=== PATIENT | female | born 1965 | race African-American/Black ===

== ENCOUNTER 2018-08-07 08:51 | Emergency (ER) | payer BC, SELFPAY ==
[2018-08-07 10:16] LABS: #Basophils 0.1 thou/uL (0.0-0.2); #Eosinphils 0.2 thou/uL (0.0-0.7); #Lymphocytes 0.6 thou/uL (1.20-3.40); #Monocytes 0.6 thou/uL (0.11-0.59); #Neutrophils 3.7 thou/uL (1.40-6.50); %Basophils 1.1 % (0.0-1.0); %Lymphocytes 12.4 % (21.0-51.0); %Monocytes 11.1 % (0.0-10.0); %Neutrophils 72.3 % (42.0-75.0); Hemoglobin 13.6 g/dL (12.0-16.0); Mean Corpuscular HGB CONC 31.4 g/dL (32.0-36.0); Mean Corpuscular Hemoglobin 26.4 pg (27.0-31.0); Mean Corpuscular Volume 84.1 fL (78.0-98.0); Mean Platelet Volume 7.8 fL (7.4-10.4); Platelet Count 289 thou/uL (130-400); RBC Distribution Width 13.3 % (11.5-14.5); Red Blood Cell (RBC) Count 5.15 mill/uL (4.20-5.40); White Blood Cell (WBC) Count 5.2 thou/uL (4.8-10.8)
[2018-08-07 10:38] LABS: ALT (SGPT) 16 U/L (8-55); AST (SGOT) 27 U/L (5-34); Albumin 4.3 g/dL (3.5-5.0); Alkaline Phosphatase 84 U/L (40-150); Anion Gap 11 mmol/L (10-20); BUN (Urea Nitrogen) 9 mg/dL (9.8-20.1); Bilirubin, Total 0.5 mg/dL (0.2-1.2); Calc. Creatinine Clearance 0 mL/min (70-130); Calcium 9.7 mg/dL (7.8-10.44); Carbon Dioxide 24 mmol/L (22-29); Chloride 110 mmol/L (98-107); Estimated GFR-MDRD Greater than 90; Globulin 3.6 g/dL (2.4-3.5); Glucose 106 mg/dL (70-105); Potassium 3.8 mmol/L (3.5-5.1); Protein, Total 7.9 g/dL (6.0-8.3); Sodium 141 mmol/L (136-145)
[2018-08-07 10:41] LABS: CKMB 0.8 ng/mL (0-6.6); Troponin I Less than 0.010 ng/mL (< 0.028)
== END 2018-08-07 12:34 | disposition home or self-care (01) ==
LOC: ERS 08:51
DX: R00.2 Palpitations (principal); E03.9 Hypothyroidism, unspecified; I10 Essential (primary) hypertension; F32.9 Major depressive disorder, single episode, unspecified; Z79.899 Other long term (current) drug therapy
CPT/HCPCS: 36415; 80053; 82553; 84443; 84484; 85025; 93005

== ENCOUNTER 2019-01-01 17:02 | Emergency (ER) | payer SELFPAY ==
[2019-01-01] MEDS ORDERED: Ketorolac Tromethamine 30 MG/ML VIAL ONE (19:36)
[2019-01-01] MEDS ORDERED: cloNIDine 0.1 MG TAB ONE (20:20)
== END 2019-01-01 21:42 | disposition home or self-care (01) ==
LOC: ERS 17:02
DX: J30.9 Allergic rhinitis, unspecified (principal); J06.9 Acute upper respiratory infection, unspecified; I10 Essential (primary) hypertension; E03.9 Hypothyroidism, unspecified; F32.9 Major depressive disorder, single episode, unspecified; Z79.899 Other long term (current) drug therapy
CPT/HCPCS: 96372; J1885

== ENCOUNTER 2019-11-04 07:43 | Emergency (ER) | payer SELFPAY | END 2019-11-04 08:07 | disposition home or self-care (01) | LOC: ERS 07:43 | DX: F41.9 Anxiety disorder, unspecified (principal); I10 Essential (primary) hypertension; E03.9 Hypothyroidism, unspecified; F32.9 Major depressive disorder, single episode, unspecified; Z79.899 Other long term (current) drug therapy | CPT/HCPCS: 99284 ==

== ENCOUNTER 2020-06-30 11:37 | Outpatient (CLI) | payer OTHER ==
--- NOTE | 2020-06-30 12:24 | RAD ---
EXAM: Single view of the chest HISTORY: Fall and hypertension COMPARISON: None FINDINGS: Single view of the chest shows a normal sized cardiomediastinal silhouette. There is no addison dence of consolidation, mass, or pleural effusion. Degenerative changes are seen in the spine. IMPRESSION: No evidence of acute cardiopulmonary disease
--- NOTE | 2020-06-30 13:57 | RAD ---
LUMBAR SPINE TWO VIEWS: 06/30/20 INDICATION: Fall with back pain. COMPARISON: None. FINDINGS: There is dextroscoliosis of the lumbar spine. No acute fracture or subluxation is evident. Spinal ali gnment is within normal limits. Cholecystectomy clips are seen within the right upper quadrant. IMPRESSION: No acute osseous abnormality. POS: [facility]
--- NOTE | 2020-06-30 13:58 | RAD ---
AP VIEW OF THE PELVIS: INDICATION: Fall with pelvic pain. COMPARISON: None. FINDINGS: There is moderate to severe osteoarthrosis of the right hip. There is mild degenerative change of th e left hip. No displaced fracture is evident. A small phlebolith is seen within the lower pelvis. IMPRESSION: 1. Moderate to severe right and mild left hip osteoarthrosis. 2. No acute osseous abnormality. POS: [facility]
--- NOTE | 2020-06-30 14:00 | RAD ---
TWO VIEWS SACRUM AND COCCYX: 06/30/20 INDICATION: History of fall with sacrococcygeal pain. FINDINGS: No definite displaced sacrococcygeal fracture is evident. There is moderate to severe right and mild left hip osteoarthrosis. IMPRESSION: No definite displaced sacrococcygeal fracture demonstrated. POS: [facility]
== END 2020-06-30 11:38 | disposition home or self-care (01) ==
LOC: BICRAD 11:37
PROVIDERS: ATTEND Family Medicine
DX: I10 Essential (primary) hypertension (principal); M79.7 Fibromyalgia; E06.3 Autoimmune thyroiditis; M16.0 Bilateral primary osteoarthritis of hip; W19.XXXA Unspecified fall, initial encounter
CPT/HCPCS: 71045; 72100; 72170; 72220

== ENCOUNTER 2020-07-02 13:13 | Outpatient (CLI) | payer OTHER ==
--- NOTE | 2020-07-02 14:49 | BD ---
EXAM: DEXA bone density examination HISTORY: 54-year-old postmenopausal female for screening COMPARISON: None FINDINGS: L1--bone mineral density 0.810 g/sq cm; T score -1.6 L2--bone mineral density 0.754 g/sq cm; T score -2.5 L3--bone mineral density 0.703 g/sq cm; T score -3.5 L4--bone mineral density 0.754 g/sq cm; T score -2.8 Total L1-L4--bone mineral density 0.753 g/sq cm; T score -2.7 Left femoral neck--bone mineral density0.539; T score -2.8 Total proximal left femur--bone mineral density 0.737; T score -1.7 IMPRESSION: Osteopenia.
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
== END 2020-07-02 13:14 | disposition home or self-care (01) ==
LOC: BICMAMMO 13:13
PROVIDERS: ATTEND Family Medicine
DX: Z12.31 Encounter for screening mammogram for malignant neoplasm of breast (principal); M81.0 Age-related osteoporosis without current pathological fracture; Z85.89 Personal history of malignant neoplasm of other organs and systems; Z80.3 Family history of malignant neoplasm of breast
CPT/HCPCS: 77063; 77067; 77080

== ENCOUNTER 2021-03-06 21:43 | Emergency (ER) | payer OTHER ==
[2021-03-06] MEDS ORDERED: Acetaminophen 500 MG TAB ONE (22:35)
[2021-03-06 23:55] LABS: Bilirubin Negative (Negative); Blood, Urine Negative (Negative); Clarity Turbid (Clear); Glucose, Urine (Dipstick) Normal (Negative); Ketone, Urine Negative (Negative); Leukocyte Negative Leu/uL (Negative); Nitrite Negative (Negative); Protein, Urine (Dipstick) Negative (Neg-Trace); Specific Gravity, Urine 1.017 (1.002-1.036); Urobilinogen Normal mg/dL (Less than 2)
[2021-03-07 01:23] LABS: SARS-CoV-2 NAA Rapid Test Not Detected (NotDetected)
== END 2021-03-07 01:00 | disposition home or self-care (01) ==
LOC: ERS 21:43
DX: J06.9 Acute upper respiratory infection, unspecified (principal); E03.9 Hypothyroidism, unspecified; I10 Essential (primary) hypertension; Z79.899 Other long term (current) drug therapy; Z20.822 Contact with and (suspected) exposure to COVID-19
CPT/HCPCS: 0240U; 71045; 81003; 87077; 87086; 87186

== ENCOUNTER 2022-05-08 00:31 | Emergency (ER) | payer OTHER, SELFPAY ==
[2022-05-08] MEDS ORDERED: methylPREDNISolone Sod Succ/PF 125 MG/2 ML VIAL ONE (02:17)
[2022-05-08 02:25] LABS: #Basophils 0.1 thou/uL (0.0-0.2); #Eosinphils 0.5 thou/uL (0.0-0.7); #Lymphocytes 0.9 thou/uL (1.20-3.40); #Monocytes 0.5 thou/uL (0.11-0.59); #Neutrophils 3.6 thou/uL (1.40-6.50); %Basophils 0.9 % (0.0-1.0); %Eosinophils 9.7 % (0.0-10.0); %Lymphocytes 16.6 % (21.0-51.0); %Monocytes 8.1 % (0.0-10.0); %Neutrophils 64.7 % (42.0-75.0); Hemoglobin 13.7 g/dL (12.0-16.0); Mean Corpuscular HGB CONC 31.6 g/dL (32.0-36.0); Mean Corpuscular Hemoglobin 27.7 pg (27.0-31.0); Mean Corpuscular Volume 87.5 fL (78.0-98.0); Mean Platelet Volume 8.1 fL (7.4-10.4); Platelet Count 189 thou/uL (130-400); RBC Distribution Width 12.9 % (11.5-14.5); Red Blood Cell (RBC) Count 4.95 mill/uL (4.20-5.40); White Blood Cell (WBC) Count 5.5 thou/uL (4.8-10.8)
[2022-05-08 02:43] LABS: ALT (SGPT) 18 U/L (8-55); AST (SGOT) 27 U/L (5-34); Alkaline Phosphatase 91 U/L (40-110); Anion Gap 12 mmol/L (10-20); BUN (Urea Nitrogen) 14 mg/dL (9.8-20.1); Bilirubin, Total Less than 0.2 mg/dL (0.2-1.2); Calc. Creatinine Clearance 0 mL/min (70-130); Calcium 8.9 mg/dL (7.8-10.44); Carbon Dioxide 28 mmol/L (22-29); Chloride 106 mmol/L (98-107); Estimated GFR 78; Globulin 3.4 g/dL (2.4-3.5); Glucose 105 mg/dL (70-105); Potassium 3.8 mmol/L (3.5-5.1); Protein, Total 7.4 g/dL (6.0-8.3); Sodium 142 mmol/L (136-145)
== END 2022-05-08 04:25 | disposition home or self-care (01) ==
LOC: ERS 00:31
DX: R05.9 Cough, unspecified (principal); I11.0 Hypertensive heart disease with heart failure; I50.9 Heart failure, unspecified; E03.9 Hypothyroidism, unspecified; Z79.899 Other long term (current) drug therapy; Z79.51 Long term (current) use of inhaled steroids
CPT/HCPCS: 36415; 71045; 80053; 83880; 84484; 85025; 93005; 96374; J2930